=== PATIENT | female | born 1950 | race Caucasian/White ===

== ENCOUNTER 2023-07-30 18:29 | Emergency (ER) | payer SELFPAY | END 2023-07-30 21:39 | disposition home or self-care (01) | LOC: CSHERS 18:29 | DX: S63.501A Unspecified sprain of right wrist, initial encounter (principal); E11.9 Type 2 diabetes mellitus without complications; I10 Essential (primary) hypertension; X58.XXXA Exposure to other specified factors, initial encounter ==

== ENCOUNTER 2023-08-30 16:41 | Emergency (ER) | payer SELFPAY | END 2023-08-30 18:05 | disposition home or self-care (01) | LOC: CSHERS 16:41 | DX: S61.012A Laceration without foreign body of left thumb without damage to nail, initial encounter (principal); W26.0XXA Contact with knife, initial encounter | CPT/HCPCS: 12001; 99282 ==

== ENCOUNTER 2024-02-05 18:37 | Emergency (ER) | payer SELFPAY | END 2024-02-05 22:08 | disposition home or self-care (01) | LOC: CSHERS 18:37 | DX: M25.462 Effusion, left knee (principal); I10 Essential (primary) hypertension; E11.9 Type 2 diabetes mellitus without complications | CPT/HCPCS: 99283 ==

== ENCOUNTER 2025-05-07 16:29 | Emergency (ER) | payer SELFPAY ==
[2025-05-07] MEDS ORDERED: HYDROcodone/Acetaminophen 5/325 mg Tablet ONE (16:58)
== END 2025-05-07 18:02 | disposition home or self-care (01) ==
LOC: CSHERS 16:29
DX: M54.6 Pain in thoracic spine (principal); G89.29 Other chronic pain; E11.9 Type 2 diabetes mellitus without complications; I10 Essential (primary) hypertension; Z86.73 Personal history of transient ischemic attack (TIA), and cerebral infarction without residual deficits
CPT/HCPCS: 99283